=== PATIENT | female | born 2000 | race Caucasian/White ===

== ENCOUNTER 2019-02-02 18:24 | Emergency (ER) | payer MEDICAID ==
[2019-02-02] MEDS ORDERED: Ketorolac 30 MG/ML SDV IM ONE (18:49)
[2019-02-02] MEDS ORDERED: Prochlorperazine 10 MG/2 ML SDV IM ONE (18:50)
--- NOTE | 2019-02-02 18:55 | EDM.PDOC ---
<MorganMario W - Last Filed: 02/02/19 19:15> ED HPI GENERAL MEDICAL PROBLEM - General Chief Complaint: Headache Stated Complaint: HEAD PAIN Time Seen by Provider: 02/02/19 18:24 Source of Information: Reports: Patient History Limitations: Reports: No Limitations - History of Present Illness INITIAL COMMENTS - FREE TEXT/NARRATIVE: Pt. presents to ER with complaints of headache for over a week, cough, chest congestion, and ear fullness. She denies any fever or chills. No chest pain or shortness of breath. No nausea, vomiting, or diarrhea. Pt. denies any head trauma. Pt. characterizes the discomfort and a band of pain across the top of her head. She has frequent headaches but has never been formally diagnosed with migraines. Denies any photophobia. No visual disturbances. Denies any aura. Pt. denies any cervical spine pain. No nausea, vomiting or diarrhea. Denies sick contacts. She states that her cough is non-productive. She is an occasional smoker of cigarettes. Denies street drug use. Social drinker. Onset Date: 01/26/19 Location: Reports: Head, Chest, Generalized Quality: Reports: Ache, Throbbing Severity: Moderate Associated Symptoms: Reports: Cough, Headaches. Denies: Confusion, Chest Pain, cough w sputum, Diaphoresis, Fever/Chills, Loss of Appetite, Nausea/Vomiting, Rash, Seizure, Shortness of Breath, Syncope, Weakness Headache Pain Score (Numeric/FACES): 8 - Related Data Allergies Allergy/AdvReac Type Severity Reaction Status Date / Time No Known Allergies Allergy Verified 02/02/19 18:48 Home Meds: Home Meds Ketorolac [Toradol] 1 tab PO Q6H 5 Days #20 tab 02/02/19 [Rx] Past Medical History - Past Health History Medical/Surgical History: Denies Medical/Surgical History Social & Family History - Tobacco Use Smoking Status *Q: Current Some Day Smoker Years of Tobacco use: 2 Packs/Tins Daily: 0.2 ED ROS GENERAL - Review of Systems Review Of Systems: See Below Constitutional: Reports: Malaise, Fatigue. Denies: Fever, Chills, Weakness, Diaphoresis HEENT: Reports: No Symptoms Respiratory: Reports: Cough Cardiovascular: Reports: No Symptoms Endocrine: Reports: No Symptoms GI/Abdominal: Reports: No Symptoms : Reports: No Symptoms Musculoskeletal: Reports: No Symptoms Skin: Reports: No Symptoms Neurological: Reports: Headache. Denies: Confusion, Dizziness, Numbness, Paresthesia, Seizure, Syncope, Trouble Speaking, Difficulty Walking, Weakness, Change in Speech, Gait Disturbance Psychiatric: Reports: No Symptoms Hematologic/Lymphatic: Reports: No Symptoms Immunologic: Reports: No Symptoms ED EXAM, GENERAL - Physical Exam Exam: See Below Exam Limited By: No Limitations General Appearance: Alert, WD/WN, No Apparent Distress Eye Exam: Bilateral Eye: EOMI, Normal Fundi, Normal Inspection, PERRL Ears: Normal External Exam, Normal Canal, Hearing Grossly Normal, Normal TMs Nose: Normal Inspection, No Blood Throat/Mouth: Normal Inspection, Normal Lips, Normal Teeth, Normal Gums, Normal Oropharynx, Normal Voice, No Airway Compromise Head: Atraumatic, Normocephalic Neck: Normal Inspection, Supple, Non-Tender, Full Range of Motion, Other (no neuchal rigidity) Respiratory/Chest: No Respiratory Distress, Crackles, Rhonchi, Other ( diminished in bases with rhonchi and crackles L>R) Extremities: Normal Inspection, Normal Range of Motion, Non-Tender Neurological: Alert, Oriented, Normal Cognition, No Motor/Sensory Deficits Psychiatric: Normal Affect, Normal Mood Skin Exam: Warm, Dry, Intact, Pallor Course - Vital Signs Last Recorded V/S: Last Vital Signs Temp 99.1 F 02/02/19 18:35 Pulse 100 02/02/19 18:35 Resp 18 02/02/19 18:35 BP 141/82 H 02/02/19 18:35 Pulse Ox 97 02/02/19 18:35 - Orders/Labs/Meds Labs: Laboratory Tests 02/02/19 02/02/19 Range/Units 19:20 19:20 WBC 7.3 (4.0-10.0) x10^3/uL RBC 4.44 (4.00-5.50) x10^6/uL Hgb 13.6 (12.0-16.0) g/dL Hct 40.2 (33.0-47.0) % MCV 90.5 (78.0-93.0) fL MCH 30.6 (26.0-32.0) pg MCHC 33.8 (32.0-36.0) g/dL RDW Coeff of Florencia 11.9 (10.0-15.0) % Plt Count 185 (130-400) x10^3/uL Add Manual Diff Yes Neutrophils % (Manual) 70 (50-80) % Lymphocytes % (Manual) 23 L (25-50) % Monocytes % (Manual) 6 (2-11) % Eosinophils % (Manual) 1 (0-4) % Platelet Estimate Adequate Sodium 140 (69-191) mmol/L Potassium 3.3 L (1.5-9.9) mmol/L Chloride 103 (54-184) mmol/L Carbon Dioxide 25 (21-32) mmol/L Anion Gap 15.3 (10-20) mmol/L BUN 9 (7-18) mg/dL Creatinine 0.7 (0.55-1.02) mg/dL Est Cr Clr Drug Dosing TNP Estimated GFR (MDRD) > 60 Glucose 88 (74-106) mg/dL Calcium 9.1 (8.5-10.1) mg/dL Corrected Calcium 9.26 (8.5-10.1) mg/dL Total Bilirubin 0.4 (0.2-1.0) mg/dL AST 20 (15-37) U/L ALT 22 (14-59) U/L Alkaline Phosphatase 64 (46-116) U/L Total Protein 8.0 (6.4-8.2) g/dL Albumin 3.8 (3.4-5.0) g/dL Globulin 4.2 Albumin/Globulin Ratio 0.90 Meds: Medications Discontinued Medications Generic Name Dose Route Start Last Admin Trade Name Freq PRN Reason Stop Dose Admin Ketorolac Tromethamine 30 mg 02/02/19 18:49 02/02/19 19:07 Toradol IM 02/02/19 18:50 30 mg ONETIME ONE Administration Prochlorperazine Edisylate 10 mg 02/02/19 18:50 02/02/19 19:06 Compazine IM 02/02/19 18:51 10 mg ONETIME ONE Administration Departure - Departure Disposition: Home, Self-Care 01 Clinical Impression: Tension-type headache URI (upper respiratory infection) Qualifiers: URI type: unspecified URI Qualified Code(s): J06.9 - Acute upper respiratory infection, unspecified - Discharge Information Prescriptions: Ketorolac [Toradol] 1 tab PO Q6H 5 Days #20 tab Instructions: General Headache Without Cause Referrals: PCP,None [Primary Care Provider] - Forms: ED Department Discharge Additional Instructions: 1. Stay well hydrated and rest --- lots of water 2. Take headache medication as prescribed for the entire coarse 3. Rest and relax, avoid any known triggers 4. Your CT, Labs, and xray were normal 5. Establish care with a family provider 6. Call us with any questions. <Kaushik Drake - Last Filed: 02/02/19 20:32> Departure - Departure Time of Disposition: 20:29 Condition: Good - Discharge Information *PRESCRIPTION DRUG MONITORING PROGRAM REVIEWED*: Not Applicable *COPY OF PRESCRIPTION DRUG MONITORING REPORT IN PATIENT LORI: Not Applicable - Problem List Review Problem List Initiated/Reviewed/Updated: Yes - Assessment/Plan Assessment:: URI Headache Plan: Assessment findings, labs, and CT/xray discussed with patient. No red flags or acute emergent problems. Discussed establishing care with a PCP for future concerns. Need to stay well hydrated. Discussed when to use the ER for headaches. Will start patient on Toradol and a couple days.
--- NOTE | 2019-02-02 19:22 | CR ---
[id number] RAD/RAD Chest PA And Lateral EXAM: FRONTAL AND LATERAL CHEST INDICATION: Cough and chest congestion. COMPARISON: None. DISCUSSION: The heart and lungs are normal in appearance. IMPRESSION: 1. Negative exam. Samuel Quigley MD 02/02/19 1922 Thank you for allowing us to participate in the care of your patient.
[2019-02-02 19:47] LABS: CHLORIDE,CL 103 mmol/L (54-184); SODIUM,NA 140 mmol/L (69-191)
[2019-02-02 20:02] LABS: ANION GAP 15.3 mmol/L (10-20)
--- NOTE | 2019-02-02 20:21 | CT ---
[id number] CT/CT Head WO IV EXAM: NONCONTRAST HEAD CT INDICATION: SEVERE HEADACHE X2 WEEKS COMPARISON: None. DISCUSSION: The ventricles and sulci are normal in size and configuration. The alvarado and white matter are normal in attenuation. No mass effect or midline shift. No acute hemorrhage or extra-axial fluid collection. No acute territorial infarct is identified. A limited look at the orbits and paranasal sinuses is unremarkable. IMPRESSION: 1. Negative exam. Samuel Quigley MD 02/02/192019 Thank you for allowing us to participate in the care of your patient.
== END 2019-02-02 20:36 | disposition home or self-care (01) ==
LOC: VM.ED 18:24
DX: J06.9 Acute upper respiratory infection, unspecified (principal); G44.209 Tension-type headache, unspecified, not intractable; F17.210 Nicotine dependence, cigarettes, uncomplicated
CPT/HCPCS: 36415; 70450; 71046; 80053; 85025; 96372; 99285; J0780; J1885

== ENCOUNTER 2019-02-08 13:22 | Emergency (ER) | payer MEDICAID ==
[2019-02-08] MEDS ORDERED: Naproxen 500 MG Tab PO ONE (13:34)
--- NOTE | 2019-02-08 13:34 | EDM.PDOC ---
ED HPI GENERAL MEDICAL PROBLEM - General Chief Complaint: Lower Extremity Injury/Pain Stated Complaint: right ankle injury Time Seen by Provider: 02/08/19 13:25 Source of Information: Reports: Patient History Limitations: Reports: No Limitations - History of Present Illness INITIAL COMMENTS - FREE TEXT/NARRATIVE: Patient comes into the emergency department with complaint of right ankle injury. Patient states that the injury happened last night she was running across the grass and her right foot fell into a divot in the grass and ended up twisting and falling. She denies any injury to any part of her body other than the right ankle. She was able to get up and walk on the ankle. However over the course of the night it has increase in swelling and increasing discomfort. She states that she does have decrease in range of motion due to the pain in the discomfort. She has not taken any Tylenol or ibuprofen has not placed any ice on the lower externally. She does state that it does feel better when she is elevating and resting it. She elicit there is more pain with movement. Patient presents to the emergency department for further evaluation above diagnoses. Source history is obtained by the patient has no other concerns or complaints. Onset: Sudden Quality: Reports: Throbbing, Other Severity: Moderate Improves with: Reports: Immobilization Worsens with: Reports: Movement Context: Reports: Activity Associated Symptoms: Reports: No Other Symptoms Right Ankle Pain Score (Numeric/FACES): 7 - Related Data Allergies Allergy/AdvReac Type Severity Reaction Status Date / Time No Known Allergies Allergy Verified 02/08/19 13:33 Home Meds: Home Meds Ketorolac [Toradol] 1 tab PO Q6H 5 Days #20 tab 02/02/19 [Rx] Past Medical History - Past Health History Medical/Surgical History: Denies Medical/Surgical History Review of Systems - Review of Systems Review Of Systems: ROS reveals no pertinent complaints other than HPI. Constitutional: Reports: No Symptoms Eyes: Reports: No Symptoms Ears: Reports: Clear Discharge Nose: Reports: No Symptoms Mouth/Throat: Reports: No Symptoms Respiratory: Reports: No Symptoms Cardiovascular: Reports: No Symptoms GI/Abdominal: Reports: No Symptoms Genitourinary: Reports: No Symptoms Musculoskeletal: Reports: Leg Pain Skin: Reports: No Symptoms Neurological: Reports: No Symptoms Psychiatric: Reports: No Symptoms ED EXAM, GENERAL - Physical Exam Exam: See Below Exam Limited By: No Limitations General Appearance: Alert, WD/WN, No Apparent Distress Respiratory/Chest: No Respiratory Distress, Lungs Clear, Normal Breath Sounds, No Accessory Muscle Use, Chest Non-Tender Cardiovascular: Normal Peripheral Pulses, Regular Rate, Rhythm, No Edema, No JVD , No Murmur Peripheral Pulses: 3+: Dorsalis Pedis (L), Dorsalis Pedis (R) Back Exam: Normal Inspection, Full Range of Motion Extremities: Normal Inspection, Normal Range of Motion, No Pedal Edema, Normal Capillary Refill, Leg Pain (moderate right ankle swelling- ecchymosis noted. Range motion limited on all directions due to pain ) Neurological: Alert, Oriented, Normal Reflexes, No Motor/Sensory Deficits Psychiatric: Normal Affect, Normal Mood Skin Exam: Warm, Dry, Intact, Normal Color Course - Vital Signs Last Recorded V/S: Last Vital Signs Temp 36.6 C 02/08/19 13:25 Pulse 92 02/08/19 13:25 Resp 16 02/08/19 13:25 BP 142/72 H 02/08/19 13:25 Pulse Ox 99 02/08/19 13:25 - Orders/Labs/Meds Orders: Active Orders 24 hr Category Date Time Status Splinting [RC] ASDIRECTED Care 02/08/19 14:17 Ordered Ankle Min 3V Rt [CR] Stat Exams 02/08/19 13:33 Taken Meds: Medications Discontinued Medications Generic Name Dose Route Start Last Admin Trade Name Freq PRN Reason Stop Dose Admin Naproxen 500 mg 02/08/19 13:34 02/08/19 13:46 Naprosyn PO 02/08/19 13:35 500 mg ONETIME ONE Administration Departure - Departure Time of Disposition: 14:15 Disposition: Home, Self-Care 01 Condition: Good Clinical Impression: Right ankle sprain Qualifiers: Encounter type: initial encounter Involved ligament of ankle: other ligament Qualified Code(s): S93.491A - Sprain of other ligament of right ankle, initial encounter - Discharge Information *PRESCRIPTION DRUG MONITORING PROGRAM REVIEWED*: Not Applicable *COPY OF PRESCRIPTION DRUG MONITORING REPORT IN PATIENT LORI: Not Applicable Instructions: Ankle Sprain, [id number], RICE for Routine Care of Injuries Referrals: PCP,None [Primary Care Provider] - Forms: ED Department Discharge Additional Instructions: 1. rest the ankle 2. Keep it elevated above the level of the heart 3. Apply ice to the area 3-4 times a day for 20 minutes each time 4. Can take Tylenol or ibuprofen as needed for pain or discomfort 5. Use the wrap to help reduce discomfort and swelling 6. Follow up with PCP if not better within 7-10 days or follow up sooner if symtpoms progress 7. Call with any questions or concerns - My Orders Last 24 Hours: My Active Orders 02/08/19 13:33 Ankle Min 3V Rt [CR] Stat 02/08/19 14:17 Splinting [RC] ASDIRECTED - Assessment/Plan Last 24 Hours: My Active Orders 02/08/19 13:33 Ankle Min 3V Rt [CR] Stat 02/08/19 14:17 Splinting [RC] ASDIRECTED Assessment:: 1. right ankle sprain Plan: 1. x-ray of right ankle. results reviewed with the patient 2. ice applied to the lower extremity 3. soft air prefab splint applied 4. Naproxen given in the er 5. Education regarding RICE, activity, diet, and follow up care provided 6. All questions and concerns addressed prior to discharge.
--- NOTE | 2019-02-08 14:23 | CR ---
[id number] RAD/RAD Ankle Right 3V Min Exam: RAD Ankle Right 3V Min Indication:FALL, ANKLE SWELLING. Comparison: None. Discussion: Soft tissue swelling in the lower leg and ankle most prominent along its lateral aspect. No radiographically evident fracture or dislocation. No osteochondral lesion or evidence of ankle mortise instability. Impression: Soft tissue swelling without fracture or dislocation. Harvinder Mcbride MD 02/08/19 1424 Thank you for allowing us to participate in the care of your patient.
== END 2019-02-08 14:27 | disposition home or self-care (01) ==
LOC: VM.ED 13:22
DX: S93.491A Sprain of other ligament of right ankle, initial encounter (principal); W01.0XXA Fall on same level from slipping, tripping and stumbling without subsequent striking against object, initial encounter; Y93.02 Activity, running
CPT/HCPCS: 73610-RT; 99283-25; A9270-GY

== ENCOUNTER 2022-12-21 19:44 | Emergency (ER) | payer MEDICAID ==
[2022-12-21] MEDS ORDERED: Orphenadrine 60 MG/2 ML Inj IM ONE (20:03)
[2022-12-21] MEDS ORDERED: Ketorolac 30 MG/ML SDV IM ONE (20:03)
[2022-12-21] MEDS ORDERED: Take Home: Cyclobenzaprine 10 MG Tab, 4 Tab Pack PO ONE (20:22)
== END 2022-12-21 20:40 | disposition home or self-care (01) ==
LOC: VM.ED 19:44
DX: G44.209 Tension-type headache, unspecified, not intractable (principal)
CPT/HCPCS: 96372; 99283; A9270-GY; J1885; J2360

== ENCOUNTER 2024-11-02 12:05 | Emergency (ER) | payer BC, MEDICAID ==
[2024-11-02 12:32] LABS: BASOPHILS PERCENT AUTO 0.5 % (0.2-1.2); EOSINOPHILS ABSOLUTE AUTO 0.1 x10^3/uL (0.0-0.5); EOSINOPHILS PERCENT AUTO 1.4 % (0.0-4.0); HEMATOCRIT 40.9 % (33.0-47.0); HEMOGLOBIN 14.4 g/dL (12.0-16.0); IMMATURE GRAN ABSOLUTE AUTO 0.04 x10^3/uL (0.00-0.07); LYMPHOCYTES ABSOLUTE AUTO 2.1 x10^3/uL (1.0-4.8); LYMPHOCYTES PERCENT AUTO 24.3 % (25.0-50.0); MEAN CORPUSCULAR HEMOGLOBIN 31.6 pg (26.0-32.0); MEAN CORPUSCULAR HGB CONC 35.2 g/dL (32.0-36.0); MEAN CORPUSCULAR VOLUME 89.9 fL (78.0-93.0); MONOCYTES ABSOLUTE AUTO 0.7 x10^3/uL (0.0-0.8); NEUTROPHILS ABSOLUTE AUTO 5.7 x10^3/uL (1.8-7.7); NEUTROPHILS PERCENT AUTO 65.3 % (50.0-80.0); PLATELET COUNT,PLT 227 x10^3/uL (130-400); RED BLOOD CELL COUNT 4.55 x10^6/uL (4.00-5.50); WHITE BLOOD CELL COUNT,WBC 8.8 x10^3/uL (4.0-10.0)
[2024-11-02 12:44] LABS: ALBUMIN 3.9 g/dL (3.4-5.0); BILIRUBIN TOTAL 0.4 mg/dL (0.2-1.0); CALCIUM 9.5 mg/dL (8.5-10.1); CREATININE 0.6 mg/dL (0.55-1.02); EST CRCL DRUG DOSING (CG) 134.18 mL/min; POTASSIUM,K 4.5 mmol/L (3.5-5.1); PROTEIN TOTAL,TP 7.8 g/dL (6.4-8.2)
[2024-11-02 12:46] LABS: ANION GAP 15.5 mmol/L (5-15)
[2024-11-02] MEDS: Metoclopramide 10 MG/2 ML SDV IVPUSH ONE (13:05)
[2024-11-02] MEDS: diphenhydrAMINE 50 MG/ML SDV IVPUSH ONE (13:05)
[2024-11-02] MEDS: Ketorolac 30 MG/ML SDV IVPUSH ONE (13:05)
== END 2024-11-02 13:40 | disposition home or self-care (01) ==
LOC: VM.ED 12:05 → SUPCPDRO 12:05 → VM.ED 13:40
DX: R51.9 Headache, unspecified (principal); R07.89 Other chest pain
CPT/HCPCS: 80053; 84484; 85025; 93005; 93010; 96374; 96375; 99284; 99285-25; J1200; J1885; J2765